=== PATIENT | female | born 1960 | race Caucasian/White ===

== ENCOUNTER 2016-05-04 07:03 | Day surgery (SDC) | payer OTHER ==
[~2016-05-04] VITALS: Ht 175.3 cm; Wt 73.9 kg
[~2016-05-04 07:03] MED LIST: CeFAZolin Inj 2 GM in IV Premix 1 EACH IV ONE; DARI15TA PO; NEFA200T PO; PRE625 PO
[2016-05-04] MEDS ORDERED: fentaNYL-PF 50 mCg/mL 2 mL Inj ONE (07:04)
[2016-05-04 07:39] VITALS: BP 116/82; PULSE 55; RESP 16; O2SAT 98
[2016-05-04] MEDS: Lactated Ringer's 1,000 ML IV SCH ×2 (07:43→08:55)
--- NOTE | 2016-05-04 08:49 | PCM.HPANE ---
Patient Data Date of Service: May 04, 2016 Surgeon Admitting Provider: Attending Provider:Sarah Alcala MD Primary Care Physician:Marcos Other Provider:Keenan Ochoa Anesthesia Reason for Visit Fecal Incontinence,Urinary Urgency Ht/WT & BMI Height (Feet): 5 Height (Inches): 9 Weight (Kilograms): 73.9 Body Mass Index 24.00 Allergies Coded Allergies: terbinafine (Verified Adverse Reaction, Severe, RECTAL RASH, 05/03/16) Past Anesthesia History Anesthesia History: Denies:: Anesthesia Reactions, Fam Anesthesia Reaction, Fam Malignant Hypertherm, Malignant Hyperthermia Diabetes History Hx Diabetes?: No MRSA MRSA: No Medications Hypertension Medication: No Home Meds Incl Beta Geovani: No Reported Medications Estrogens Conjugated (Premarin)0.625 Mg Tablet0.625 Mg PO DAILY 30 Days Ref 0 PLEASE VERIFY DOSAGE 05/03/16 Nefazodone 200 Mg [id number] Mg PO BID 05/03/16 Darifenacin ER (Enablex)15 Mg [id number] Mg PO DAILY Ref 0 05/03/16 History History of ENT Problems?: No Hx of Heart Problems?: No Cardiovascular History: Denies:: Chest Pain Heart Murmur Hypertension Irregular Heartbeat Other Cardiac History: no sob Respiratory History: Denies:: Use of C-PAP Machine Hx Neurologic Problems?: No Neurological History: Denies:: CVA Seizures Hx of GI Problems?: Yes Gastrointestinal History: Positive for:: Gall Bladder Disease (S/P MARTINEZ) Other GI Pertinent History: S/P GASTRIC SLEEVE, C/OF DIARRHEA; fecal incontinence Hx of Problems?: Yes HX of Peritoneal Dialysis: No Other Pertinent History: urgency of urination Female Hx: Denies:: Currently Skin History: Denies:: History Skin Disorders? Pressure Ulcers Hx Musculoskeletal Problems?: No Hx of Psycho/Social Problems?: Yes Psycho Social History: Positive for:: Hx Depression Hx Surgeries?: Yes (HYST/A&P RPR,MARTINEZ,GASTRIC SLEEVE, pilonidal cyst) Hx Any Other Health Problems?: Yes Other History: Denies:: Cancer Endocrine Disease Hospitalization Thyroid Disease Hx Diabetes: No Hx Alcohol Use: No (QUIT 2015)Have You Smoked inLast 12 mo: No Stop/Bang S-Snoring: Do You Snore Loudly: No T-Tired: feel tired, fatigued: No O-Obsered: Observed not breath: No P-Blood Pressure: treated: No B- Body Mass Index > 35 kg/m2: No A- Age over 50: Yes N- Neck Large Circumference: No G- Gender Male: No EDUARDO Total Score: 1 EDUARDO Risk Assessment: Low Risk, <3 Yes Risk Assessment Category Category 1A: Patient has history of documented sleep apnea, and HAS NOT received any narcotic, sedative or anesthesia administration during this stay. Category 1B: Patient has history of documented sleep apnea, and HAS received any narcotic , sedative or anesthesia administration during this stay Category 2: Patient has SUSPECTED Obstructive Sleep Apnea, and HAS received any narcotic , sedative or anesthesia administration during this stay. Category 3: Patient has SUSPECTED Obstructive Sleep Apnea and HAS NOT received narcotic, sedative or anesthesia administration during this stay. Category 4: Outpatient in Procedural Areas with known sleep apnea or who screen positive for High Risk via the STOP/BANG questionnaire. Exam Exam Vital Signs Vital Signs Date Time Temp Pulse Resp B/P Pulse Ox O2 Delivery O2 Flow Rate FiO2 05/04/16 07:39 35.9 55 16 116/82 98 Room Air General Appearance: Alert, Oriented X3, Cooperative, No Acute Distress HEENT/AIRWAY: MP 2, Neck Movement (from), Mouth Opening ( >3), Other (tmd>3) Lungs: Normal Air Movement Heart: Exam Unremarkable, Regular Rate/Rhythm, Normal S1, Normal S2, No Murmurs /Rubs/Gallops Meds/Labs/Diagnostics Admission Meds Current Medications Lactated Ringer's (Lr) 1,000 ml @ 120 mls/hr [id number] IV Last administered on t 07:43; Start 05/04/16 at 05:00; Stop 05/04/16 at 13:19 Plan Impression Patient chart reviewed, patient interviewed and anesthestic plan with risks, benefits, and alternatives discussed, and informed consent obtained. NPO Status: 0530 WATER ASA Physical Status: ASA2 Mod Systemic Disease Anesthetic Plan: MAC Bene/Risks/Altern/Consents: Yes HP Complete Prior to Induction: Yes Other awareness during MAC addressed, GA backup addressed, possible need for pt to converse with surgeon during procedure addressed Rolando Maza MD May 04, 2016 08:49
[2016-05-04] MEDS ORDERED: Lactated Ringer's 1,000 ML IV SCH (09:11)
[2016-05-04] MEDS ORDERED: Lactated Ringer's 500 ML IV PRN (09:11)
[2016-05-04] MEDS ORDERED: Bupivacaine-MPF 0.5% W/EPI 30 mL Inj INFILTRATE ONE (09:13)
[2016-05-04] MEDS ORDERED: Dexamethasone 4 mg/mL Inj IVPUSH PRN (09:15)
[2016-05-04] MEDS ORDERED: HYDROmorphone 1 mg/mL Inj IVPUSH PRN (09:15)
[2016-05-04] MEDS ORDERED: Phenylephrine 10,000 mCg/mL Inj IVPUSH PRN (09:15)
[2016-05-04] MEDS ORDERED: EPHEDrine Sulfate 50 mg/mL Inj IVPUSH PRN (09:15)
[2016-05-04] MEDS ORDERED: fentaNYL-PF 50 mCg/mL 2 mL Inj IVPUSH PRN (09:15)
[2016-05-04] MEDS ORDERED: Ondansetron 2 mg/mL 2 mL Inj IVPUSH PRN (09:15)
[2016-05-04] MEDS ORDERED: MetoCLOpramide 5 mg/mL 2 mL Inj IVPUSH PRN (09:15)
[2016-05-04] MEDS ORDERED: Vancomycin 1,000 mg Inj IRRIGATION ONE (09:16)
[2016-05-04] MEDS ORDERED: Gentamicin 40 mg/mL 2 mL Inj IRRIGATION ONE (09:16)
[2016-05-04 10:41] VITALS: BP 138/62; PULSE 60; RESP 16; O2SAT 99
[2016-05-04] MEDS ORDERED: Ondansetron 8 mg ODT Tablet PO PRN (12:05)
[2016-05-04] MEDS ORDERED: HYDROcodone-APAP 5-325 mg Tablet PO PRN (12:05)
--- NOTE | 2016-05-04 17:51 | PCM.ANEP2 ---
Post Anesthesia Evaluation ASA/CMS Post Anesthesia VS in Patient's Normal Range?: Yes Resp Stable; Airway Patent?: Yes CV Function & Hydration Stable: Yes Mental Status Recovered?: Yes Pain control Satisfactory?: Yes N/V Control Satisfactory?: Yes Rolando Maza MD May 04, 2016 17:51
--- NOTE | 2016-05-04 17:51 | PCM.ANEP1 ---
Post Anesthesia Phase 1 PACU Phase 1 Assessment Date of Service: May 04, 2016 Vital Signs Vital Signs Date Time Temp Pulse Resp B/P Pulse Ox O2 Delivery O2 Flow Rate FiO2 05/04/16 10:41 36.9 60 16 138/62 99 Room Air Anesthetic Administered: MAC Level of Alertness: Awake, talking ROSADO's with Equal Strength: Yes Pain: No Pain Scale Score: 0 Nausea or Vomiting: No Oxygen Delivery: Simple Mask Lungs: Normal Air Movement Rolando Maza MD May 04, 2016 17:50
--- NOTE | 2016-05-05 09:57 | OP ---
[address] [address] OPERATIVE REPORT PATIENT: EVELIN GONZALEZ : 1960 MR#: [id number] ADMIT: 05/04/2016 JOB ID: [id number] DATE OF SURGERY: 05/04/2016 PROCEDURE: Stage 1 InterStim implant to include 1 transforaminal placement of a sacral neural electrode, as well as 2 fluoroscopy imaging and guidance. SURGEON: Sarah Alcala MD. ANESTHESIA: Local with monitored anesthesia care and IV sedation. PREOPERATIVE DIAGNOSIS(ES): Intractable urinary urgency, frequency, urge incontinence, as well as fecal urgency and fecal incontinence. POSTOPERATIVE DIAGNOSIS(ES): Intractable urinary urgency, frequency, urge incontinence, as well as fecal urgency and fecal incontinence. INDICATIONS: The patient is a 55-year-old woman with longstanding history of urinary complaints developing over the years, also fecal urgency and fecal incontinence, electing trial of sacral nerve modulation for her difficulties. She is counseled about risks and benefits and wished to proceed. PROCEDURE IN DETAIL: After appropriate informed consent was obtained, the patient was brought to the operating room. She was made comfortable in the prone position. All pressure points carefully padded. Cleaned, prepped and draped in the usual sterile fashion. Fluoroscope was brought in. Bony landmarks were identified and were somewhat difficult to see. However, we used a half/half mixture of lidocaine and Marcaine for local anesthesia and used a finder needle to test to multiple locations on the right and the left of S3 and probably also S4, although it was difficult to ascertain entirely. The patient had very subtle, very little motor responses and ultimately we selected a location on the right S3 with a very subtle toe and Maryellen responses on electrodes two and three and some sensory on electrode one. We got no responses in the operating room that we could identify on zero despite numerous attempts at lead placement. Ultimately we went with this. It was comfortable for the patient. She was s able to tell us this and she was feeling sensory in the appropriate locations for S3 response. With our finder needle, this was converted in Seldinger fashion over to the quadripolar electrode and with responses as above. This was tunneled out into a pocket which was created on the right below the right iliac crest. This was irrigated out copiously with the antibiotic solution, vancomycin and gentamicin. Hemostasis was achieved with electrocautery. We then made the connection to the extension wire using the boot cover device, and this was tunneled out to the distal end of this to the patient's left, a maximum distance from the pocket site itself. The wounds were irrigated out copiously with vancomycin and gentamicin solution and then closed in layers of 2-0 Vicryl, a layer of 4-0 Monocryl and benzoin and Steri-Strips. The patient tolerated the procedure very well, was awakened, taken back to the one-day surgery area. JAYSON
== END 2016-05-04 23:59 | disposition home or self-care (01) ==
LOC: SAS 07:03
PROVIDERS: ATTEND Urology
DX: R39.15 Urgency of urination (principal); R35.0 Frequency of micturition; R15.2 Fecal urgency; R15.9 Full incontinence of feces; R35.1 Nocturia; F32.9 Major depressive disorder, single episode, unspecified; Z90.710 Acquired absence of both cervix and uterus; Z98.84 Bariatric surgery status
CPT/HCPCS: 64581; 76001; C1778; J0690; J1580; J2250; J3010; J3370; J7120

== ENCOUNTER 2016-05-18 06:43 | Day surgery (SDC) | payer OTHER ==
[~2016-05-18] VITALS: Ht 175.3 cm; Wt 73.9 kg
[~2016-05-18 06:43] MED LIST changes: -CeFAZolin Inj 2 GM in IV Premix 1 EACH IV ONE; +CeFAZolin Inj 2 GM in IV Premix 1 EACH IV SCH; +Lactated Ringer's 1,000 ML IV SCH
[2016-05-18] MEDS ORDERED: Ketamine 10 mg/mL 20 mL Inj ONE (06:44)
[2016-05-18] MEDS ORDERED: Propofol 10,000 mCg/mL 20 mL Inj ONE (06:44)
[2016-05-18 07:21] VITALS: BP 127/79; PULSE 53; RESP 17; O2SAT 98
[2016-05-18] MEDS ORDERED: Lactated Ringer's 1,000 ML IV SCH (07:25)
[2016-05-18] MEDS ORDERED: HYDROmorphone 1 mg/mL Inj IVPUSH PRN (07:25)
[2016-05-18] MEDS ORDERED: Dexamethasone 4 mg/mL Inj IVPUSH PRN (07:25)
[2016-05-18] MEDS ORDERED: Lactated Ringer's 500 ML IV PRN (07:25)
[2016-05-18] MEDS ORDERED: hydrALAZINE 20 mg/mL Inj IVPUSH PRN (07:25)
[2016-05-18] MEDS ORDERED: fentaNYL-PF 50 mCg/mL 2 mL Inj IVPUSH PRN (07:25)
[2016-05-18] MEDS ORDERED: EPHEDrine Sulfate 50 mg/mL Inj IVPUSH PRN (07:25)
[2016-05-18] MEDS ORDERED: Labetalol 5 mg/mL 4 mL Inj IV PRN (07:25)
[2016-05-18] MEDS ORDERED: Phenylephrine 10,000 mCg/mL Inj IVPUSH PRN (07:25)
[2016-05-18] MEDS ORDERED: Ondansetron 2 mg/mL 2 mL Inj IVPUSH PRN (07:25)
[2016-05-18] MEDS ORDERED: MetoCLOpramide 5 mg/mL 2 mL Inj IVPUSH PRN (07:25)
[2016-05-18] MEDS ORDERED: Lactated Ringer's 1,000 ML IV ONE (07:42)
--- NOTE | 2016-05-18 08:23 | PCM.HPANE ---
Patient Data Date of Service: May 18, 2016 Surgeon Admitting Provider: Attending Provider:Sarah Alcala MD Primary Care Physician:Other,Physician Other Provider:Keenan Ochoa Anesthesia Reason for Visit Fecal Incontinence, Urinary Urgency Ht/WT & BMI Height (Feet): 5 Height (Inches): 9.00 Weight (Kilograms): 73.900 Body Mass Index 24.00 Allergies Coded Allergies: terbinafine (Verified Adverse Reaction, Severe, RECTAL RASH, 05/03/16) Past Anesthesia History Anesthesia History: Denies:: Anesthesia Reactions, Fam Anesthesia Reaction, Fam Malignant Hypertherm, Malignant Hyperthermia Diabetes History Hx Diabetes?: No MRSA MRSA: No Medications Home Meds Incl Beta Geovani: No Reported Medications Estrogens Conjugated (Premarin)0.625 Mg Tablet0.625 Mg PO DAILY 30 Days Ref 0 PLEASE VERIFY DOSAGE 05/03/16 Nefazodone 200 Mg [id number] Mg PO BID 05/03/16 Darifenacin ER (Enablex)15 Mg [id number] Mg PO DAILY Ref 0 05/03/16 History History of ENT Problems?: No Hx of Heart Problems?: No Cardiovascular History: Denies:: Chest Pain Heart Murmur Hypertension Irregular Heartbeat Hx of Respiratory Problem?: No Respiratory History: Denies:: Use of C-PAP Machine Hx Neurologic Problems?: No Neurological History: Denies:: CVA Seizures Hx of GI Problems?: Yes Hx of Problems?: Yes HX of Peritoneal Dialysis: No Female Hx: Denies:: Currently (hysterectomy) Skin History: Denies:: History Skin Disorders? Pressure Ulcers Hx Musculoskeletal Problems?: No Hx of Psycho/Social Problems?: Yes Psycho Social History: Positive for:: Hx Depression Hx Surgeries?: Yes (HYST/A&P RPR,MARTINEZ,GASTRIC SLEEVE, pilonidal cyst) Hx Any Other Health Problems?: Yes Other History: Denies:: Cancer Endocrine Disease Hospitalization Thyroid Disease Hx Diabetes: No Hx Alcohol Use: No (QUIT 2015)Have You Smoked inLast 12 mo: No Stop/Bang S-Snoring: Do You Snore Loudly: No T-Tired: feel tired, fatigued: No O-Obsered: Observed not breath: No P-Blood Pressure: treated: No B- Body Mass Index > 35 kg/m2: No A- Age over 50: Yes N- Neck Large Circumference: No G- Gender Male: No EDUARDO Risk Assessment: Low Risk, <3 Yes Risk Assessment Category Category 1A: Patient has history of documented sleep apnea, and HAS NOT received any narcotic, sedative or anesthesia administration during this stay. Category 1B: Patient has history of documented sleep apnea, and HAS received any narcotic , sedative or anesthesia administration during this stay Category 2: Patient has SUSPECTED Obstructive Sleep Apnea, and HAS received any narcotic , sedative or anesthesia administration during this stay. Category 3: Patient has SUSPECTED Obstructive Sleep Apnea and HAS NOT received narcotic, sedative or anesthesia administration during this stay. Category 4: Outpatient in Procedural Areas with known sleep apnea or who screen positive for High Risk via the STOP/BANG questionnaire. Exam Exam Vital Signs Vital Signs Date Time Temp Pulse Resp B/P Pulse Ox O2 Delivery O2 Flow Rate FiO2 05/18/16 07:21 53 17 127/79 98 Room Air General Appearance: Alert, Oriented X3, Cooperative, No Acute Distress HEENT/AIRWAY: MP 2 Lungs: Clear to Auscultation, Normal Air Movement Heart: Exam Unremarkable, Regular Rate/Rhythm, No Murmurs/Rubs/Gallops Meds/Labs/Diagnostics Admission Meds Current Medications Lactated Ringer's (Lr) 1,000 ml @ ud STK-MED ONCE IV Last administered on 05/18t 07:42; Start 05/18/16 at 07:42; Stop 05/18/16 at 07:43; Status DC Plan Impression Patient chart reviewed, patient interviewed and anesthestic plan with risks, benefits, and alternatives discussed, and informed consent obtained. NPO Status: 05/17@2230 ASA Physical Status: ASA2 Mod Systemic Disease Anesthetic Plan: MAC Bene/Risks/Altern/Consents: Yes HP Complete Prior to Induction: Yes Ej Mcdonald MD May 18, 2016 08:22
[2016-05-18] MEDS ORDERED: Bupivacaine-MPF 0.5% W/EPI 30 mL Inj INFILTRATE ONE (08:42)
[2016-05-18] MEDS ORDERED: Vancomycin 1,000 mg Inj IRRIGATION ONE (08:43)
[2016-05-18] MEDS ORDERED: Gentamicin 40 mg/mL 2 mL Inj IRRIGATION ONE (08:43)
[2016-05-18 09:09] VITALS: BP 128/72; PULSE 54; RESP 18; RESP 22; O2SAT 99
[2016-05-18] MEDS ORDERED: Ondansetron 8 mg ODT Tablet PO PRN (09:10)
[2016-05-18] MEDS ORDERED: HYDROcodone-APAP 5-325 mg Tablet PO PRN (09:10)
[2016-05-18 09:16] VITALS: BP 123/77; PULSE 54; RESP 18; O2SAT 96
[2016-05-18 09:25] VITALS: BP 125/70; PULSE 50; RESP 16; O2SAT 100
--- NOTE | 2016-05-18 09:26 | PCM.ANEP2 ---
Post Anesthesia Evaluation ASA/CMS Post Anesthesia VS in Patient's Normal Range?: Yes Resp Stable; Airway Patent?: Yes CV Function & Hydration Stable: Yes Mental Status Recovered?: Yes Pain control Satisfactory?: Yes N/V Control Satisfactory?: Yes Ej Mcdonald MD May 18, 2016 09:26
--- NOTE | 2016-05-18 09:26 | PCM.ANEP1 ---
Post Anesthesia Phase 1 PACU Phase 1 Assessment Date of Service: May 18, 2016 Vital Signs Vital Signs Date Time Temp Pulse Resp B/P Pulse Ox O2 Delivery O2 Flow Rate FiO2 05/18/16 09:16 54 18 123/77 96 Room Air 05/18/16 09:09 36.8 54 22 128/72 99 Room Air 05/18/16 07:21 53 17 127/79 98 Room Air Anesthetic Administered: MAC Level of Alertness: Awake, talking Pain: No Nausea or Vomiting: No Oxygen Delivery: Room Air Lungs: Clear to Auscultation, Normal Air Movement Ej Mcdonald MD May 18, 2016 09:26
--- NOTE | 2016-05-19 23:31 | OP ---
[address] [address] OPERATIVE REPORT PATIENT: EVELIN GONZALEZ : 1960 MR#: [id number] ADMIT: 05/18/2016 JOB ID: [id number] DATE OF SURGERY: 05/18/2016 SURGEON: Sarah Alcala MD. PROCEDURE: Stage 2 InterStim implant to include IPG implantation and complex initial programming and setup of device. ANESTHESIA: Local with monitored anesthesia care and IV sedation. PREOPERATIVE DIAGNOSIS(ES): Intractable urinary urgency, frequency, urge incontinence. POSTOPERATIVE DIAGNOSIS(ES): Intractable urinary urgency, frequency, urge incontinence. INDICATIONS: The patient is a 55-year-old woman with the above history including fecal incontinence who elected a trial of sacral nerve modulation for treatment of both her fecal incontinence and urge incontinence. She had stage 1 lead placed on the right may 04, 2016 with outstanding results. No bowel accidents and marked improvement in her urinary urgency and urge accidents as well, electing to proceed with permanent implant. PROCEDURE IN DETAIL: After appropriate informed consent was obtained, the patient was brought to the operating room. She received IV antibiotics prior to onset of the procedure. She was made comfortable in the prone position. All pressure points carefully padded. Cleaned, prepped, and draped in the usual sterile fashion. Right-sided buttock pocket was identified and infiltrated with half and half mixture of lidocaine and Marcaine for local anesthesia. It was opened up. The extension wire was identified. The distal portion was cut and allowed to fall outside of the patient. The internal portion was removed with a ratcheted screwdriver leaving the distal end of the quadripolar electrode in the pocket. This was enlarged, sharply, bluntly and with electrocautery to accommodate the size of the Medtronic 2 IPG. Hemostasis achieved with electrocautery. We rinsed the pocket itself out and then added the Medtronic 2 IPG. Gentle tug revealed a good connection with the ratcheted screwdriver. It fit nicely into the pocket. It was irrigated out further for a full liter of vancomycin and gentamicin solution, also irrigated between layers of closure. It was closed with a layer of 2-0 Vicryl, a layer of 4-0 Monocryl and a layer of benzoin and Steri-Strips. The patient tolerated the procedure well and was returned to the one-day surgery area where we turned the device on and found it to be operating within normal parameters. It was set up with initial rate of 14, pulse width was 210. Program one set up as 0 negative and 3 positive. Program two was 1 negative, 3 positive. Program three was 2 negative and 0 positive. Program four was 3 negative and zero positive.
== END 2016-05-18 23:59 | disposition home or self-care (01) ==
LOC: SAS 06:43 → EDUNIT# 10:00 → SAS 23:59
PROVIDERS: ATTEND Urology
DX: R39.15 Urgency of urination (principal); R15.9 Full incontinence of feces; F32.9 Major depressive disorder, single episode, unspecified; Z79.899 Other long term (current) drug therapy